=== PATIENT | female | born 1970 | race Caucasian/White ===

== ENCOUNTER 2017-01-31 11:51 | Day surgery (SDC) | payer BC ==
[2017-01-29 08:34] VITALS: BMI 38.0
[~2017-01-31] VITALS: Ht 162.6 cm; Wt 101.8 kg
[~2017-01-31 11:51] MED LIST: BCPILLS PO; CEFAZOLIN 2000 MG/60 ML D5W IV SCH; CITA20TA9 PO; LACTATED RINGER'S 1000ML 1,000 ML IV SCH; PHEN37.5 PO; ZOVIRAX
[2017-01-31] MEDS ORDERED: FENTANYL CITRATE INJ 50 MCG/1 ML 2 ML VIAL ONE ×3 (12:01→14:59)
[2017-01-31] MEDS ORDERED: MIDAZOLAM HCL 1 MG/ML 2ML VIAL ONE (12:01)
[2017-01-31 12:31] VITALS: Ht 162.6 cm; Wt 101.8 kg
[2017-01-31] MEDS ORDERED: LIDOCAINE/EPINEPHRINE 1% 20 ML VIAL ONE (13:30)
[2017-01-31] MEDS ORDERED: BACITRACIN 50000 UNIT VIAL ONE (13:30)
[2017-01-31] MEDS ORDERED: BUPIVACAINE 0.5 % 5 MG/1 ML MPF 30ML VIAL ONE (13:30)
[2017-01-31] MEDS ORDERED: BACITRACIN OINT 15 GM TUBE ONE (13:30)
--- NOTE | 2017-01-31 13:41 | History & Physical Bridge Note ---
H&P Re-Evaluation Bridge Note: I have examined the patient, reviewed the History & Physical and in the interval since the performance of the History & Physical I have noted the following changes of clinical significance: No changes noted
[2017-01-31] MEDS ORDERED: GLYCOPYRROLATE INJ 0.2 MG/ML VIAL ONE (14:56)
[2017-01-31] MEDS ORDERED: ROCURONIUM BROMIDE 10 MG/ML 5 ML VIAL ONE (14:56)
[2017-01-31] MEDS ORDERED: ONDANSETRON INJ 2 MG/ML 2 ML VIAL ONE (14:56)
[2017-01-31] MEDS ORDERED: SUCCINYLCHOLINE CHLORIDE 20 MG/ML 10 ML VIAL IV ONE (14:56)
[2017-01-31] MEDS ORDERED: DEXAMETHASONE SOD INJ 4 MG/ML VIAL ONE (14:56)
[2017-01-31] MEDS ORDERED: LIDOCAINE HCL 2% 2 ML VIAL (20MG/ML) ONE (14:56)
[2017-01-31] MEDS ORDERED: PROPOFOL IV EMULSION 10 MG/ML 20 ML VIAL IV ONE (14:56)
[2017-01-31] MEDS ORDERED: NEOSTIGMINE METHYLSULFATE 5 MG/5 ML SYR ONE (14:56)
[2017-01-31] MEDS ORDERED: SODIUM CHLORIDE 0.9% 1000ML 1,000 ML IV SCH (15:33)
--- NOTE | 2017-01-31 15:33 | [facility] Post Operative Brief Note ---
Immediate Operative Summary Operative Date Jan 31, 2017. Pre-Operative Diagnosis Right Shoulder Lipoma Post-Operative Diagnosis Same as preop Procedure(s) Performed Right Shoulder Mass Excision Surgeon Dr. Jones Prover Surgeon(s) surgical aide Estimated Blood Loss 50 ML Findings lipoma Fluids (cc crystalloids) 1100ml Specimens A. Right Shoulder Lipoma Drains none Anesthesia general Complication(s) None Disposition Recovery Room / PACU
[2017-01-31] MEDS ORDERED: OXYC-57 PO (15:38)
--- NOTE | 2017-01-31 15:41 | Discharge Instructions ---
Discharge Instructions Date of Service Jan 31, 2017. Visit Reason for Visit: Mass of Skin of Left Shoulder Discharge Discharge Diagnosis / Problem: s/p resection large mass on right shoulder Discharge Goals Goal(s): Decrease discomfort, Improve nutritional status Activity Recommendations Activity Limitations: per Instructions/Follow-up section Lifting Limitations: no more than 25 pounds Exercise/Sports Limitations: gradually increase as tolerated May Resume Sexual Activity: when tolerated Shower/Bathe: may shower/bathe in 3 days Anesthesia . Post Anesthesia Instructions: If you have had General Anesthesia or IV Sedation: * Do not drive today. * Resume driving when surgeon permits. * Do not make important decisions or sign legal documents today. * Call surgeon for: 1. Temperature elevations greater than 101 degrees F. 2. Uncontrollable pain. 3. Excessive bleeding. 4. Persistent nausea and vomiting. 5. Medication intolerance (nausea, vomiting or rash). * For nausea and vomiting use only clear liquids such as: tea, soda, bouillon until nausea subsides, then gradually increase diet as tolerated. * If you have any concerns or questions, call your surgeon's office. If physician is unavailable and it is an emergency, call 911 or go to the nearest emergency room. . Instructions / Follow-Up Instructions / Follow-Up keep the dressing on for 4 days, she can take a shower on 02/04/2017, no driving while taking pain medicine, follow mup 1 week, , Diet Recommendations Recommended Home Diet: resume previous diet Procedures Procedures Performed: Right Shoulder Mass Excision Pending Studies Studies pending at discharge: no Medical Emergencies . Who to Call and When: Medical Emergencies: If at any time you feel your situation is an emergency, please call 911 immediately. . Non-Emergent Contact Non-Emergency issues call your: Primary Care Provider, Surgeon Call Non-Emergent contact if: you have a fever, temperature is above 100.5, your pain is not controlled, your pain is worsening, wound has increased drainage, wound has increased redness . . "Provider Documentation" section prepared by Lorna Jones. . [place] Drug Monitoring Program Search Results: no issues identified
[2017-01-31] MEDS ORDERED: MoRPHine SULFATE 2 MG/ML CARP IV PRN (15:45)
[2017-01-31] MEDS ORDERED: OXYCODONE/ACETAMINOPHEN 5-325 TAB PO PRN (15:45)
[2017-01-31] MEDS ORDERED: ONDANSETRON INJ 2 MG/ML 2 ML VIAL IV PRN ×2 (15:45→16:00)
[2017-01-31] MEDS ORDERED: HYDROmorphone INJ 1 MG/ML SYR IV PRN (16:00)
[2017-01-31] MEDS ORDERED: FENTANYL CITRATE INJ 50 MCG/1 ML 2 ML VIAL IV PRN (16:00)
[2017-01-31] MEDS ORDERED: EpHEDrine SULFATE INJ 50 MG/ML AMP IV PRN (16:00)
[2017-01-31] MEDS ORDERED: ATROPINE SULFATE 0.1 MG/ML 5ML SYR IV PRN (16:00)
--- NOTE | 2017-01-31 16:02 | Anesthesiology Progress Note ---
Anesthesia Post Op Note Date & Time Jan 31, 2017 at 16:02 Vital Signs Pain Intensity: 0 Vital Signs Past 12 Hours Date Time Temp Pulse Resp B/P (MAP) Pulse Ox O2 Delivery O2 Flow Rate FiO2 01/31/17 16:00 61 16 116/64 92 Room Air 01/31/17 15:50 65 16 113/98 93 Oxymask 8 01/31/17 15:40 57 16 155/68 93 Oxymask 8 01/31/17 15:34 36.1 85 16 146/93 92 Oxymask 8 Notes Mental Status: alert / awake / arousable, participated in evaluation Pt Amnestic to Procedure: Yes Nausea / Vomiting: adequately controlled Pain: adequately controlled Airway Patency, RR, SpO2: stable & adequate BP & HR: stable & adequate Hydration State: stable & adequate Anesthetic Complications: no major complications apparent
[2017-01-31 16:15] VITALS: BP 145/67; TEMP 36.6; O2SAT 93
[2017-01-31 16:42] VITALS: BP 145/65; PULSE 59; O2SAT 91
[2017-01-31 17:10] VITALS: BP 123/63; PULSE 59; TEMP 36.5; O2SAT 94
--- NOTE | 2017-01-31 20:52 | OPERATIVE REPORT ---
DATE OF OPERATION: 01/31/2017 PREOPERATIVE DIAGNOSIS: Large mass on the right shoulder. POSTOPERATIVE DIAGNOSIS: Same, lipoma. PROCEDURE: Resection of large mass on the right shoulder. SURGEON: Dr. Jones. ANESTHESIA: General. ESTIMATED BLOOD LOSS: About 50 mL FINDINGS: Lipoma. COMPLICATIONS: None. IV FLUIDS: 1000 mL INDICATIONS OF THE PROCEDURE: This is a 46-year-old female, who presented with a 5 year history of a mass on the right shoulder. The mass is getting bigger and sometimes causing the patient pain. The patient required resection of the mass. I did talk to the patient about the benefit and risk, alternate procedure and indicated the risks may include, but not limited such as bleeding, infection, recurrence, may need more procedure, injury to nerves or vessels. The patient understands and she signed informed consent. I answered all questions. DETAILS OF PROCEDURE: We brought the patient to the OR, put the patient in the supine position. The patient received SCD on bilateral legs to prevent DVT. The patient received 2 grams Ancef IV for prophylactic antibiotic. The patient received general anesthesia without difficulty. Then we repositioned the patient in the lateral decubitus position and the patient's right shoulder side was prepped and draped in routine sterile fashion. After a timeout and we marked the mass size about 20 x 15 cm and then I made about a 20 cm incision on the back and then completely removed the lipoma deep to the subcutaneous layer. Hemostasis was obtained using 2-0 Vicryl, closed the subcutaneous layer in continuous running, closed skin by using staple. Then we put the dressing on. The patient tolerated the procedure well. All instruments, needle and sponge count correct x2 at the end. After the procedure, the patient transferred to recovery room in stable condition. After the procedure, I did talk to the patient and the patient's family member about the postop care instruction. I also talked to them about the OR finding and procedure we did, they understand. The specimen was sent to pathology. I attest to the content of the Intraoperative Record and any orders documented therein. Any exceptions are noted below. MIKEYD
[2017-02-01] MEDS ORDERED: CEFAZOLIN IV 2,000 MG/60 ML D5W IV ONE (06:00)
== END 2017-01-31 17:13 | disposition home or self-care (01) ==
LOC: C.ACU 11:51
PROVIDERS: ATTEND Surgery
DX: D17.39 Benign lipomatous neoplasm of skin and subcutaneous tissue of other sites (principal); E66.01 Morbid (severe) obesity due to excess calories; F41.9 Anxiety disorder, unspecified; K76.0 Fatty (change of) liver, not elsewhere classified